=== PATIENT | female | born 1975 | race Caucasian/White ===

== ENCOUNTER 2019-01-06 14:17 | Emergency (ER) | payer OTHER ==
[2019-01-06] MEDS: HYDROCODONE/APAP (5/325) TAB PO (15:29)
[2019-01-06] MEDS: KETOROLAC 30 MG INJ IM (15:44)
== END 2019-01-06 16:20 | disposition home or self-care (01) ==
LOC: FTE 14:17
DX: M54.2 Cervicalgia (principal)
CPT/HCPCS: 72040; 81025; 96372; 99284-25